=== PATIENT | female | born 1965 | race Caucasian/White ===

== ENCOUNTER 2024-05-13 02:00 | Emergency (ER) | payer MEDICARE, MEDICAID ==
[~2024-05-13] VITALS: Ht 154.9 cm; Wt 75.1 kg
[2024-05-13 02:05] VITALS: BP 122/81; PULSE 91; RESP 16; TEMP 98; O2SAT 99
[2024-05-13] MEDS ORDERED: KETOROLAC 30MG/ML VIAL IV STA (02:23)
[2024-05-13] MEDS ORDERED: SODIUM CHLORIDE 0.9% 1,000 ML IV ONE (02:30)
[2024-05-13] MEDS ORDERED: DIPHENHYDRAMINE 50MG/ML VIAL IV ONE (02:30)
[2024-05-13] MEDS ORDERED: METOCLOPRAMIDE HCL 10MG/2ML VIAL IV ONE (02:30)
== END 2024-05-13 03:53 | disposition left against medical advice (07) ==
LOC: ER 03:11
DX: R51.9 Headache, unspecified (principal); Z53.21 Procedure and treatment not carried out due to patient leaving prior to being seen by health care provider
CPT/HCPCS: 82962; J7030

== ENCOUNTER 2024-08-15 15:58 | Emergency (ER) | payer MEDICARE, MEDICAID ==
[~2024-08-15] VITALS: Ht 154.9 cm; Wt 70.0 kg
[2024-08-15 16:05] VITALS: BP 120/61; PULSE 98; RESP 16; TEMP 98.3; O2SAT 99
[2024-08-15] MEDS ORDERED: KETOROLAC 30MG/ML VIAL IV STA (17:40)
[2024-08-15] MEDS ORDERED: METOCLOPRAMIDE HCL 10MG/2ML VIAL IV ONE (17:45)
[2024-08-15] MEDS ORDERED: DIPHENHYDRAMINE 50MG/ML VIAL IV ONE (17:45)
[2024-08-15] MEDS ORDERED: SODIUM CHLORIDE 0.9% 500 ML IV ONE (17:45)
== END 2024-08-15 17:55 | disposition left against medical advice (07) ==
LOC: ER 15:58
DX: R51.9 Headache, unspecified (principal); E11.9 Type 2 diabetes mellitus without complications
CPT/HCPCS: 99281; J1200; J1885; J2765; J7030